=== PATIENT | female | born 1950 | race Caucasian/White ===

== ENCOUNTER 2017-07-19 02:11 | Inpatient (IN) | payer OTHER ==
[~2017-07-19] VITALS: Ht 165.1 cm; Wt 95.3 kg
[~2017-07-19 02:11] MED LIST: COZAAR100 M1 PO; GLIMEPIRIDE2 MG PO; GLIMEPIRIDE4 M1 PO; GLUCOPHAGE1000 M1 PO; HYDROXYCHLOROQ200 M2 PO; SIMVASTATIN40 M1 PO; ZOFRAN ODT4 M1 SL
[2017-07-19] MEDS ORDERED: ASPIRIN EC81 M1 PO (10:24)
[2017-07-19] MEDS ORDERED: COLACE100 M1 PO (10:24)
[2017-07-19] MEDS ORDERED: MIRALAX17 G1 PO (10:24)
[2017-07-19] MEDS ORDERED: DILAUDID2 M1 PO (10:24)
--- NOTE | 2017-07-19 10:42 | Patient Discharge Instructions ---
Discharge Instructions General Discharge Information You were seen/treated for: OSTEOARTHRITIS LEFT HIP You had these procedures: LEFT TOTAL HIP REPLACEMENT Watch for these problems: Increasing pain despite the use of pain medication Increasing redness, warmth or swelling Drainage of any type from incision Inability to bear weight on operative leg Persistent nausea and vomiting Fever greater than 101.5 degrees Call Surgeon to remove: Lucie (WOUND CHECK -NO LUCIE) Daily wet to dry dressings: No Other wound care: Please keep wound clean and dry. No ointments or lotions of any type on or near incision at any time. No exceptions. Your dressing will be changed by your nurse on the second day after your surgery. Daily dry dressing changes are recommended each day thereafter. Do not soak your wound in a bath at any time until otherwise indicated by your surgeon. You may shower, please dry wound immediately after shower with a clean towel. Diet Continue normal diet: Yes Recommended Diet: Diabetic, Heart Healthy Activity Full Activity/No Limits: No (NO STRENUOUS ACTIVITIES) Activity Self Limited: Yes Acute Coronary Syndrome Inclusion Criteria At DC or during hospital stay patient has or had the following: ACS DIAGNOSIS No Discharge Core Measures Meds if any: Prescribed or Continued at Discharge Meds if any: NOT Prescribed or Continued at Discharge Congestive Heart Failure Inclusion Criteria At DC or during hospital stay patient has or had the following: CHF DIAGNOSIS No Discharge Core Measures Meds if any: Prescribed or Continued at Discharge Meds if any: NOT Prescribed or Continued at Discharge Cerebrovascular accident Inclusion Criteria At DC or during hospital stay patient has or had the following: CVA/TIA Diagnosis No Discharge Core Measures Meds if any: Prescribed or Continued at Discharge Meds if any: NOT Prescribed or Continued at Discharge Venous thromboembolism Inclusion Criteria VTE Diagnosis No VTE Type NONE VTE Confirmed by (Test) NONE Discharge Core Measures - Per Current guidelines, there needs to be overlap - treatment for the first 5 days of Warfarin therapy. - If discharged on Warfarin prior to 5 days of - overlap therapy, the patient will need to be - assessed for post discharge needs including - *Post discharge parental anticoagulation - *Warfarin and/or parental anticoagulation education - *Follow up date to check INR post discharge At least 5 days overlap therapy as Inpatient No Meds if any: Prescribed or Continued at Discharge Note: Overlap Therapy is Warfarin and Anticoagulant Meds if any: NOT Prescribed or Continued at Discharge
[2017-07-19] MEDS ORDERED: ASPIRIN EC325 M2 PO (10:44)
--- NOTE | 2017-07-19 10:49 | Surg Short-stay <48hrs Dis Sum ---
Visit Information Visit Dates Admission Date: 07/19/17 Discharge Date: 07/21/17 Surgical Short Stay DC Summary Admission Diagnosis: OSTEOARTHRITIS LEFT HIP Final Diagnosis: OSTEOARTHRITIS LEFT HIP Procedure(s): LEFT TOTAL HIP ARTHROPLASTY Summary/Significant Findings: Patient was admitted to the hospital for an elective total joint replacement. The procedure was tolerated well and patient was transferred to a general surgical floor. Diet was advanced and tolerated, and the patient voided spontaneously. The patient was evaluated and treated by physical therapy. At the time of hospital discharge, the vital signs were stable, neurovascular status was intact, and pain was controlled with the use of oral pain medications. Follow up with Dr. Calzada in 6 weeks from date of surgery. Please call his office to arrange and/or confirm this appointment. Condition at Discharge: STABLE Discharge Disposition: home health services Discharge instructions provided to patient/family: Yes Post discharge follow-up plan: FOLLOW-UP IN 6 WEEKS AT OFFICE Copies to: Andrzej Calzada MD
--- NOTE | 2017-07-19 13:26 | Admission Core Measures ---
Acute Coronary Syndrome (CM) ACS Core Measures Acute Coronary Syndrome Diagnosis No Congestive Heart Failure (NEW) CHF Core Measures Congestive Heart Failure Diagnosis No Cerebrovascular Accident (NEW) CVA Core Measures CVA/TIA Diagnosis No Venous Thromboembolism VTE Core [place] (View Protocol) VTE Risk Factors Surgery No Mechanical VTE Prophylaxis d/t N/A MechProphylax Ordered No VTE Pharm Prophylaxis d/t NA PharmProphylax ordered Problem List As ranked by this Provider includes Assessment & Plan 1. Primary localized osteoarthritis of left hip HOME MEDS Home Med List Aspirin (Ecotrin*) 325 MG TABLET.DR 1 TAB PO DAILY POSTOP Docusate Sodium (Colace) 100 MG CAPSULE 1 CAP PO BID PREVENT CONSTIPATION Glimepiride 2 MG TABLET 1 TAB PO DAILY DM (Reported) Glimepiride 4 MG TABLET 1 TAB PO BID DM (Reported) Hydromorphone HCl (Dilaudid) 2 MG TABLET 1-2 TAB PO Q4-6 PRN PRN PAIN Hydroxychloroquine Sulfate 200 MG TABLET 1 TAB PO BID ARTHRITIS (Reported) Losartan (Cozaar) 100 MG TABLET 1 TAB PO DAILY HTN (Reported) Metformin HCl (Glucophage) 1,000 MG TABLET 1 TAB PO BID DM (Reported) Ondansetron (Zofran Odt) 4 MG TAB.RAPDIS 1 TAB SL PRN NAUSEA WITH TRAMADOL ( Reported) Polyethylene Glycol 3350 (Miralax) 17 GRAM POWD.PACK 1 PAC PO DAILY PREVENTION CONSTIPATION Polyethylene Glycol 3350 (Miralax) 17 GRAM POWD.PACK 1 PAC PO DAILY PREVENTION CONSTIPATION Simvastatin (Simvastatin*) 40 MG TABLET 1 TAB PO QPM CHOLESTEROL (Reported) Tramadol HCl 50 MG TABLET 1 TAB PO BIDP PRN PAIN (Reported)
[2017-07-19 13:45] VITALS: BP 112/70
--- NOTE | 2017-07-19 13:47 | Operative Report ---
Operative/Inv Procedure Report Surgery Date: 07/19/17 Name of Procedure: Left total hip replacement Pre-Operative Diagnosis: Primary left hip DJD Post-Operative Diagnosis: Same Estimated Blood Loss: 250 Surgeon/Product Design Engineer: Elsi KNAPP,Andrzej Zapata Anesthesia: block Operative/Procedure Note Note: Description of Procedure: The patient was taken to the operating room and positively identified. After induction of spinal anesthesia and administration of appropriate pre-operative antibiotics, the patient was positioned supine on the operating room table and all bony prominences were well padded. After performing a surgical timeout, the left lower extremity was prepped and draped in the usual sterile fashion. A direct anterior approach was made to the left hip. The incision was carried sharply through superficial soft tissues to the level of the fascia. Meticulous hemostasis was maintained with Bovie electocautery. The fascia over the tensor fascia alfredo muscle was opened sharply and the interval between the TFL and the sartorius was entered bluntly taking care to stay lateral to the lateral femoral cutaneous nerve. Retractors were placed around the femoral neck and the pericapsular fat was identified. The ascending branches of the lateral femoral circumflex vessels were identified and carefully coagulated. The pericapsular fat and anterior capsule were then resected. A napkin ring osteotomy was performed and the femoral head was removed without difficulty. Attention was then turned to the acetabulum. After appropriate placement of retractors, the acetabulum was exposed. Soft tissue was cleaned from the acetabular margin and notch. Overhanging osteophytes were removed and the teardrop was exposed. The acetabulum was then sequentially reamed to accept a 52 mm [place] Tritanium hemispherical solid shell. This was impacted into place in the appropriate position and fitted with a 32 mm Trident X3 zero degree polyethylene insert. Attention was then turned to the femur. After performing the appropriate ligament releases, the proximal femur was exposed. It was then sequentially broached to accept a size 3 [place] Accolade II stem. This was trialed for leg length and stability. The trial component was removed and the final component was impacted into place. The trunnion was carefully cleaned and fit with a 32 mm, +4 Biolox delta ceramic femoral head. The hip was reduced and put through a full range of motion and found to be stable. The articular space was then irrigated with sterile saline. The periarticular soft tissues were infilitrated with Marcaine. The fascial layer was closed with interrupted #1 vicryl suture and the skin was re-approximated with interrupted 2 -0 vicryl. The skin was closed with a running 3-0 V-Lock suture. Steri-strips and a sterile dressing were applied. The patient was awakened and taken to the recovery room in satisfactory condition.
--- NOTE | 2017-07-19 14:12 | RADIOLOGY REPORT ---
EXAMINATION: XR HIP, LEFT CLINICAL INFORMATION: In PACU. Status post left total hip replacement. COMPARISON: None TECHNIQUE: Two views of the left hip. FINDINGS: Evaluation on the initial frontal view is limited with the hip joint and femoral head component of the prosthesis not fully included. Therefore repeat imaging of the frontal view was performed. On the lateral view, the hip joint is not included. The patient is status post total left hip arthroplasty with the femoral component well-seated within the galena bone. No hardware failure or galena bone fracture is seen. Mild acetabular roof spurring and enthesopathic change is at the iliac spine is seen. Included portions of the left sacroiliac joint unremarkable. IMPRESSION: Anatomic alignment status post total left hip arthroplasty. No hardware failure or galena bone fracture seen.
--- NOTE | 2017-07-19 14:51 | PN- Orthopedic ---
Subjective Subjective: No acute post operative events reported. Some nausea without emesis, resolved with med. No chest pain, shortness of breath and difficulty breathing. Has been oob but was unable to ambulate due to residual effect of spinal. Objective Vital Signs and I&Os Vital Signs Date Time Temp Pulse Resp B/P B/P Pulse O2 O2 Flow FiO2 Mean Ox Delivery Rate 07/19 1345 97.8 77 14 112/70 96 Intake & Output 07/19 0000 07/18 0000 Intake Total 150 Output Total Balance 150 Intake, Oral 150 Patient 210 lb 205 lb Weight Physical Exam: General: Alert and oriented x3, no acute distress Cardiac: RRR, s1s2 Pulm: CTA bilaterally, non-labored respiratory effort Abd: Non-distended Extremities: Moves all extremities. Distal sensation grossly intact. Skin warm and well perfused. Distal pulses to ble palpable. Bilateral calves soft and non-tender Surgical site: Left hip, dressing dry and intact, thigh compartment soft Assessment/Plan Assessment/Plan This is a 66 year old female, pod 0, s/p l thr, doing well -OOB, wbat -Follow up void -Ancef 2g x2 additional doses for abx ppx -ASA 325 bid for dvt ppx -ALPS, teds for dvt ppx -Colace/miralax for bowel regimen -Continue home meds Will discuss poc with Dr. Calzada Core Measures Venous Thromboembolism VTE Risk Factors Surgery No Mechanical VTE Prophylaxis d/t N/A MechProphylax Ordered No VTE Pharm Prophylaxis d/t NA PharmProphylax ordered
[2017-07-19 16:56] VITALS: BP 130/72
[2017-07-19 19:05] VITALS: BP 130/62
[2017-07-19 23:06] VITALS: BP 98/60
[2017-07-20 02:01] VITALS: BP 122/76
[2017-07-20 06:00] VITALS: BP 120/86
--- NOTE | 2017-07-20 07:26 | PN- Orthopedic ---
Subjective Subjective: Patient states that she had a lot of pain overnight however it is better controlled. She gets nausea with pain medication as well. Otherwise she feels well, no fever no flulike illness, no other complaints. She is in good spirits. She is hopeful to be discharged home today Objective Vital Signs and I&Os Vital Signs Date Time Temp Pulse Resp B/P B/P Pulse O2 O2 Flow FiO2 Mean Ox Delivery Rate 07/20 06 98.7 88 18 120/86 96 Room Air 07/20 0201 98.7 71 18 122/76 96 Room Air 07/19 2306 99.0 91 20 98/60 94 Room Air 07/19 1905 98.9 102 20 130/62 92 Room Air 07/19 1656 98.6 90 16 130/72 93 Room Air 07/19 1345 97.8 77 14 112/70 96 Intake & Output 07/20 0800 / 0000 / 1600 07/19 0800 / 0000 05/ 1600 Intake Total 840 1140 150 Output Total 1450 2700 Balance -610 -1560 150 Intake, IV 600 900 Intake, Oral 240 240 150 Output, Urine 1450 2700 Patient 210 lb 205 lb Weight Physical Exam: Well-developed well-nourished no apparent distress. HEENT: Atraumatic, extraocular motion intact Neck: Supple, no lymphadenopathy Respiratory: No respiratory distress Extremities: No edema Left lower extremity hip dressing in place, Dressing clean dry and intact Mild thigh swelling No signs of infection. No shortening or rotation Hip range of motion is limited and without unexpected pain Neurovascularly intact distally Bilateral calves are supple, nontender. Neuro: Alert and oriented x3 Psych: Mood affect normal, normal memory normal judgment. Skin: Warm and dry, no rash on exposed skin Assessment/Plan Assessment/Plan Postop day #1 status post left total hip arthroplasty anterior approach. Perioperative antibiotics. Pain medication as needed. Out of bed Physical therapy, weightbearing as tolerated DC IV fluids Regular diet Follow a.m. labs Aspirin for DVT prophylaxis ALPS for DVT prophylaxis Regular home meds Dressing change postop day 2 Plan for discharge home today if labs acceptable includes physical therapy Core Measures Venous Thromboembolism VTE Risk Factors Surgery No Mechanical VTE Prophylaxis d/t N/A MechProphylax Ordered No VTE Pharm Prophylaxis d/t NA PharmProphylax ordered
[2017-07-20 07:59] LABS: ABSOLUTE BASOPHIL COUNT 0 /CUMM (0.0-0.2); ABSOLUTE EOSINOPHIL COUNT 0 /CUMM (0.0-0.7); ABSOLUTE GRANULOCYTE CT 4.4 /CUMM (1.4-6.5); ABSOLUTE LYMPH COUNT 1.5 /CUMM (1.2-3.4); ABSOLUTE MONOCYTE COUNT 0.8 /CUMM (0.10-0.60); BASOPHIL % 0.5 % (0.0-2.0); EOSINOPHIL % 0.5 % (0-5); GRANULOCYTE % 64.1 % (42.2-75.2); HEMATOCRIT 33.8 % (37-47); MEAN CORPUSCULAR HGB 28.6 PG (27.0-31.0); MEAN CORPUSCULAR HGB CONC 32.7 G/DL (33.0-37.0); MEAN CORPUSCULAR VOLUME 87.5 FL (81.0-99.0); MEAN PLATELET VOLUME 8.8 FL (7.4-10.4); PLATELET COUNT 216 /CUMM (130-400); RBC DISTRIBUTION WIDTH 13.9 % (11.5-14.5); RED BLOOD CELL CT 3.87 /CUMM (4.20-5.40); WHITE BLOOD CELL COUNT 6.8 /CUMM (4.8-10.8)
[2017-07-20 10:40] VITALS: BP 110/62
[2017-07-20 14:50] VITALS: BP 120/60
[2017-07-20 22:27] VITALS: BP 128/80
[2017-07-21 06:20] VITALS: BP 142/62
[2017-07-21] MEDS ORDERED: ASPIRIN EC325 M2 PO (07:56)
[2017-07-21] MEDS ORDERED: PRILOSEC OTC20 M1 PO (07:57)
--- NOTE | 2017-07-21 08:04 | PN- Orthopedic ---
Subjective Subjective: No acute overnight events reported, pain controlled. Nausea improved. No chest pain, shortness of breath and difficulty breathing. Anticipates dc home today. Objective Vital Signs and I&Os Vital Signs Date Time Temp Pulse Resp B/P B/P Pulse O2 O2 Flow FiO2 Mean Ox Delivery Rate 07/21 0620 97.5 72 20 142/62 100 Nasal Cannula 07/20 2227 99.6 106 20 128/80 94 Room Air / 1450 98.5 86 20 120/60 96 Room Air 07/20 1040 98.5 80 20 110/62 98 Room Air 07/20 0812 98.7 88 18 120/86 Intake & Output 07/21 1600 07/21 0800 / 0000 07/20 1600 07/20 0800 07/20 0000 Intake Total 260 260 537 444 1037 Output Total 300 1450 2700 Balance 260 260 100 -610 -1560 Intake, IV 20 20 600 900 Intake, Oral 240 240 400 240 240 Output, Urine 300 1450 2700 Physical Exam: Gen: AAO x3, no acute distress Card: RRR, s1s2 Pulm: C TA bilaterally Abd: Non-tender, non-distended Extremities: Moves all extremities, distal sensation grossly intact. Skin warm and well perfused. Dressing changed, skin edges well approximated, some bruising noted, no drainage. Bilateral calves soft and non-tender. Assessment/Plan Assessment/Plan Ortho stable OOB, amublate with PT DC to home if pain controlled, vital signs stable, labwork normal and clear pt Core Measures Venous Thromboembolism VTE Risk Factors Surgery No Mechanical VTE Prophylaxis d/t N/A MechProphylax Ordered No VTE Pharm Prophylaxis d/t NA PharmProphylax ordered
[2017-07-21 09:38] VITALS: BP 100/58
[2017-07-21 10:46] LABS: ABSOLUTE BASOPHIL COUNT 0 /CUMM (0.0-0.2); ABSOLUTE EOSINOPHIL COUNT 0.1 /CUMM (0.0-0.7); ABSOLUTE GRANULOCYTE CT 4.8 /CUMM (1.4-6.5); ABSOLUTE LYMPH COUNT 1.3 /CUMM (1.2-3.4); ABSOLUTE MONOCYTE COUNT 0.9 /CUMM (0.10-0.60); BASOPHIL % 0.4 % (0.0-2.0); EOSINOPHIL % 0.9 % (0-5); GRANULOCYTE % 67.5 % (42.2-75.2); MEAN CORPUSCULAR HGB 28.9 PG (27.0-31.0); MEAN CORPUSCULAR HGB CONC 33.2 G/DL (33.0-37.0); MEAN CORPUSCULAR VOLUME 87.1 FL (81.0-99.0); MEAN PLATELET VOLUME 7.9 FL (7.4-10.4); PLATELET COUNT 289 /CUMM (130-400); RBC DISTRIBUTION WIDTH 14.1 % (11.5-14.5); RED BLOOD CELL CT 3.67 /CUMM (4.20-5.40); WHITE BLOOD CELL COUNT 7.1 /CUMM (4.8-10.8)
[2017-07-21] MEDS ORDERED: TRAMADOL HCL50 M1 PO (11:21)
== END 2017-07-21 12:50 | disposition home health service (06) | DRG 470 ==
LOC: SDA 02:11 → ENRESERV 12:03 → ENTRNSPT 12:52 → EDTRNSPT 13:06 → EDTRNSPTSTS 13:06 → 2NA 13:11 → CMPTRNSPT 13:19 → ENPENDDIS 07-21 08:38 → ENTRNSPT 07-21 12:35 → EDTRNSPTSTS 07-21 12:40 → EDTRNSPT 07-21 12:40 → 2NA 07-21 12:50 → CMPTRNSPT 07-21 12:59
PROVIDERS: Physician Assistant
PROC: 0SRB04A Replacement of Left Hip Joint with Ceramic on Polyethylene Synthetic Substitute, Uncemented, Open Approach (ICD-10-PCS; principal; 2017-07-19)
DX: M16.12 Unilateral primary osteoarthritis, left hip (principal); E11.9 Type 2 diabetes mellitus without complications; E78.5 Hyperlipidemia, unspecified; Z79.82 Long term (current) use of aspirin; Z79.84 Long term (current) use of oral hypoglycemic drugs; Z79.891 Long term (current) use of opiate analgesic; I10 Essential (primary) hypertension; H40.9 Unspecified glaucoma; Z88.8 Allergy status to other drugs, medicaments and biological substances; Z90.49 Acquired absence of other specified parts of digestive tract
CPT/HCPCS: 2NASP; 36415; 73502-LT; 82436; 88304; 97110-GO; 97116-GO; 97161-GP; 97530-GO; J0131; J0690; J0735; J1815; J2405; J2550; J2765; J3490; J7042